=== PATIENT | male | born 2000 | race Caucasian/White ===

== ENCOUNTER 2018-07-10 00:35 | Emergency (ER) | payer BC ==
--- NOTE | 2018-07-10 00:46 | ED ---
Head Injury - HPI Summary HPI Summary: This patient is a 17 year old M [facility] to [facility] status post fall that occurred [employer] arrival. Pt states he hit the back, left of his head. The patient rates the pain 3/10 in severity. Symptoms aggravated by nothing. Symptoms alleviated by nothing. Patient reports laceration to back of head. Patient states he consumed some ETOH prior to the fall. - History Of Current Complaint Stated Complaint: HEAD LAC Hx Obtained From: Patient Mechanism Of Injury: Fall From Height Of: - 3 feet Onset/Duration: Started Hours Ago, Traumatic, Still Present Onset of Pain: Post Accident Severity Currently: Moderate Severity Initially: Moderate Pain Intensity: 3 Pain Scale Used: 0-10 Numeric Location of Head Injury: Occipital Aggravating Factor(s): Other: - Nothing Alleviating Factor(s): Other: - Nothing Associated Signs And Symptoms: Other: - Positive laceration on back of head - Allergies/Home Medications Allergies/Adverse Reactions: Allergies Allergy/AdvReac Type Severity Reaction Status Date / Time No Known Allergies Allergy Verified 07/10/18 00:44 PMH/Surg Hx/FS Hx/Imm Hx Previously Healthy: Yes Opthamlomology History: Denies: Hx Legally Blind EENT History: Denies: Hx Deafness - Family History Known Family History: Negative: Cardiac Disease, Diabetes - Social History Occupation: Student Lives: Dormitory/Roommates Alcohol Use: Occasionally Hx Substance Use: No Substance Use Type: Reports: None Hx Tobacco Use: Yes Smoking Status (MU): Unknown if Ever Smoked Review of Systems Negative: Fever Positive: Other - Positive laceration on back of head All Other Systems Reviewed And Are Negative: Yes Physical Exam - Summary Physical Exam Summary: Appearance: Well-appearing, Well-nourished, lying in bed comfortable Skin: Warm, dry, no obvious rash. 1 cm laceration on left occipital scalp with no active bleeding. Eyes: sclera anicteric, no conjunctival pallor ENT: mucous membranes moist Neck: nml ROM of neck Respiratory: No signs of respiratory distress Cardiovascular: Appears well perfused, pulses are nml Abdomen: deferred Musculoskeletal: Moving all 4 extremities without obvious discomfort Neurological: Awake and alert, mentation is normal, speech is fluent and appropriate Psychiatric: affect is normal, does not appear anxious or depressed Triage Information Reviewed: Yes Vital Signs Reviewed: Yes Procedures - Laceration/Wound Repair 1 Location: head Description: Linear Length, Depth and Shape: 1 cm Laceration/Wound Explored: clean Closure: Swatara #__ - 2 Layer Closure?: Yes Sterile Dressing Applied?: Yes - Attestation Statements Document Initiated by Scribe: Yes Documenting Scribe: Coral Diaz Provider For Whom Scribe is Documenting (Include Credential): Godwin Atkinson MD Scribe Attestation: I, Coral Diaz, scribed for Godwin Atkinson MD on 07/10/18 at 0044.
[2018-07-10 01:30] VITALS: BP 112/60
== END 2018-07-10 01:29 | disposition home or self-care (01) ==
LOC: ED 00:35
DX: S01.91XA Laceration without foreign body of unspecified part of head, initial encounter (principal); W22.8XXA Striking against or struck by other objects, initial encounter; Y92.9 Unspecified place or not applicable
CPT/HCPCS: 12001; 99282